=== PATIENT | female | born 1995 | race Hispanic/Latino ===

== ENCOUNTER 2024-03-13 10:09 | Emergency (ER) | payer SELFPAY ==
[~2024-03-13] VITALS: Ht 137.2 cm; Wt 44.5 kg
[~2024-03-13 10:09] MED LIST: ACET-2079 PO; PREN-196 PO
--- NOTE | 2024-03-13 10:15 | NUR ---
TRANSFER REQUEST FOR OB SERVICE. PETER BARBER
--- NOTE | 2024-03-13 10:22 | NUR ---
TRANSFER REACHED OUT TO [facility] TOOL TROUBLE SHOOTER FOR DROP IN FOR OB STATES CALL ER FOR ON AND TRANSFER CENTER. ER CALLED AND DR ECHOLS ROOFING SALES REPRESENTATIVE. ER DR MADE AWARE TO CALL DR ECHOLS TO DO DOCTOR TO DOCTOR REPORT. PETER BARBER
--- NOTE | 2024-03-13 10:26 | NUR ---
TRANSFER CALL PLACE TO [facility] TRANSFER CENTER [phone] INFORMATION GIVEN WILL CALL BACK. PETER BARBER
--- NOTE | 2024-03-13 10:35 | NUR ---
TRANSFER CALL BACK FROM [facility] INTAKE NURSE WITH ACCEPTANCE UNDER DR KINZA GRIMALDO AT 1033 PT WILL GO TO LDR TRIAGE ON 2ND FLOOR AND PRIMARY NURSE TO CALL REPORT TO [phone] AND EMS . PETER BARBER
[2024-03-13 10:49] VITALS: BP 115/65; PULSE 84; RESP 18; TEMP 98.1; O2SAT 99
--- NOTE | 2024-03-13 10:58 | NUR ---
REPORT CALLED TO SHAYLA GARRISON RN AT [facility] L&D
[2024-03-13 10:59] LABS: BASOPHILS # (AUTO) 0.03 K/uL (0.00-0.20); BASOPHILS % (AUTO) 0.3 % (0.0-5.0); EOSINOPHILS # (AUTO) 0.06 K/uL (0.00-0.70); EOSINOPHILS % (AUTO) 0.6 % (0.0-8.0); HEMATOCRIT 33.1 % (36-48); IMMATURE GRANULOCYTE ABSOLUTE 0.04 K/uL (0-1); LYMPHOCYTES # (AUTO) 2.5 K/uL (1.0-4.8); LYMPHOCYTES % (AUTO) 26.8 % (21.0-51.0); MEAN CORPUSCULAR HEMOGLOBIN 27.3 pg (27.0-33.0); MEAN CORPUSCULAR HGB CONC 32.3 g/dL (32.0-36.0); MEAN CORPUSCULAR VOLUME 84.4 fL (79-99); MONOCYTES # (AUTO) 0.6 K/uL (0.1-1.0); MONOCYTES % (AUTO) 5.9 % (3.0-13.0); NEUTROPHILS # (AUTO) 6.2 K/uL (1.8-7.7); PLATELET COUNT (AUTO) 205 K/uL (130-400); RED BLOOD CELL COUNT(AUTO) 3.92 MIL/uL (4.00-5.50); RED CELL DISTRIBUTION WIDTH 17.2 % (11.0-15.5); WHITE BLOOD COUNT (AUTO) 9.5 K/uL (4.8-10.8)
--- NOTE | 2024-03-13 11:01 | NUR ---
EMS AT BEDSIDE, REPORT TO [facility]
[2024-03-13] MEDS: 0.9%NACL 1000ML 1,000 ML IV ONE (11:04)
[2024-03-13 11:05] LABS: CREATININE 0.5 mg/dL (0.5-1.0); POTASSIUM 3.3 mmol/L (3.5-5.1)
--- NOTE | 2024-03-13 11:08 | ERN ---
General Chief Complaint: OB>20 weeks gest. Stated Complaint: CONTRACTIONS Time Seen by MD: 10:18 History of Present Illness Initial Comments 28-year-old female two para one at 39 weeks of gestational age came in for lower abdominal pressure with contractions that started at 5:00 a.m. this morning. Patient states that her contractions been irregular. Patient denies any fluid leak. Patient otherwise has no concerns. Allergies: Coded Allergies: No Known Allergies (Unverified Allergy, Unknown, 08/26/22) Home Meds Reported Medications Acetaminophen with Codeine (Acetaminophen-Cod #3 Tablet) 1 Each Tablet, 1 EACH PO Q4HPRN PRN for PAIN, TAB 08/28/22 Vit No.124/Iron/FA ( Vitamin Tablet) 1 Each Tablet, 1 EACH PO DAILYDINNER, TAB 08/27/22 Past Medical History Past Medical History: No Pertinent History Past Surgical History: Female( History) LMP: June 29, 2023 : 2 Para: 1 Aborts: 0 ROS Dictation CONSTITUTIONAL: Negative except for HPI HEAD/FACE: Negative except for HPI EENT: Negative except for HPI RESPIRATORY: Negative except for HPI GASTROINTESTINAL/ABDOMINAL: Negative except for HPI GENITOURINARY: Negative except for HPI MUSCULOSKELETAL: Negative except for HPI INTEGUMENTARY: Negative except for HPI NEUROLOGICAL/PSYCH: Negative except for HPI HEMATOLOGIC/LYMPHATIC: Negative except for HPI All Systems Negative, Except as noted above. 13 point review of systems assessed and all negative except for above. Physical Exam Physical Exam Dictation Vital Signs reviewed General Appearance: Alert, oriented x 3, no acute distress, well developed, nourished. Head and Face: non-traumatic. Eyes: PERRL, pink conjunctivas, eyelid no trauma, anterior chamber with arcus senilis. Ears: Pinnas intact and no signs of trauma or erythema ear canals clear and no discharge TM no erythema Nose: No discharge, no bleeding. Oropharynx: Mouth normal, tongue pink, pharynx clear,no erythema, tonsils no exudates, no abscesses noted, mucous membrane moist Neck: Supple, non-tender, no thyromegaly, no masses, no JVD, no bruits Breast:Deferred Chest:No tenderness, no crepitus, no paradoxical movement, no retractions Lungs:Clear, well-ventilated, symmetric, no rales, no wheezing, no rhonchi, no stridor, good breath sounds bilaterally Heart: Regular rate, regular rhythm, no murmur, no gallops Vascular: no peripheral edema, Abdomen: Soft, positive bowel sounds, nondistended, no guarding, nontender, no rebound, no masses no hepatomegaly, no splenomegaly, no Guerrero's s ign, no hernias. Rectal: Deferred Genital: Deferred Neurological: Normal speech, motor function intact, sensory function intact Musculoskeletal: Neck nontender, full range of motion, back nontender, full range of motion, Extremities: nontender, full range of motion Skin: Color pink, dry, no turgor, no rash, no lacerations, no abrasions, no contusions. Lymphatic: Deferred Results Laboratory and Microbiology Lab and Micro Result Laboratory Tests Test 03/13/24 10:28 White Blood Count 9.5 K/uL (4.8-10.8) Red Blood Count 3.92 MIL/uL (4.00-5.50) L Hemoglobin 10.7 g/dL (12.0-16.0) L Hematocrit 33.1 % (36-48) L Mean Corpuscular Volume 84.4 fL (79-99) Mean Corpuscular Hemoglobin 27.3 pg (27.0-33.0) Mean Corpuscular Hemoglobin Concent 32.3 g/dL (32.0-36.0) Red Cell Distribution Width 17.2 % (11.0-15.5) H Platelet Count 205 K/uL (130-400) Mean Platelet Volume 10.6 fL (7.5-10.5) H Immature Granulocyte % (Auto) 0.4 % (0-1) Neutrophils (%) (Auto) 66.0 % (40.0-77.0) Lymphocytes (%) (Auto) 26.8 % (21.0-51.0) Monocytes (%) (Auto) 5.9 % (3.0-13.0) Eosinophils (%) (Auto) 0.6 % (0.0-8.0) Basophils (%) (Auto) 0.3 % (0.0-5.0) Neutrophils # (Auto) 6.2 K/uL (1.8-7.7) Lymphocytes # (Auto) 2.5 K/uL (1.0-4.8) Monocytes # (Auto) 0.6 K/uL (0.1-1.0) Eosinophils # (Auto) 0.06 K/uL (0.00-0.70) Basophils # (Auto) 0.03 K/uL (0.00-0.20) Absolute Immature Granulocyte (auto 0.04 K/uL (0-1) Nucleated Red Blood Cells 0.0 % (0.0-0.19) MDM MDM: Differential diagnosis: Rationale: Tests considered and ordered secondary to shared decision making include: Previous outside records reviewed: Old ER visits. Risk of complication and/or morbidity or mortality of patient management: None Medications-Per medication reconciliation Need for hospitalization: Patient does meet criteria for hospitalization. Need for emergency major/minor surgery: No There are no social concerns with this patient. Prescription drug management Prescriptions will include symptomatic care Patient's prior external medical records from other ER visits were reviewed by me as indicated. Prior testing and results from previous visits were reviewed. Prior tests were taken into account with medical decision making and resource utilization, independent historian/historians were used to obtain complete medical history. I independently interpreted the test that were performed, results were reviewed by me and considered findings on radiology if ordered. Medical management and examination interpretation discussions were had by me with other qualified healthcare professionals as indicated for the patient's care. Patient was placed on tocometer and there is moderate variability and since patient has been here she has not had any contraction. On pelvic exam patient was 2 cm dilated with high cervix. [facility] for further management. Report has been given to on-call consumer insight analyst who accepted the patient. Patient understands and agrees with the plan of care. ED Course Orders Procedure Category Date Status Time Cbc With Differential LAB 03/13/24 Complete 10:25 Basic Metabolic Panel LAB 03/13/24 In Process 10:25 Urinalysis Profile LAB 03/13/24 Logged 10:25 Type And Screen BBK 03/13/24 In Process 10:25 0.9%Nacl 1000ml (Ns PHA 03/13/24 Complete 1000ml) 10:30 Current Medications Medications (Trade) Dose Ordered Sig/Radha Route PRN Reason Start Time Stop Time Status Last Admin Dose Admin Sodium Chloride 1,000 ml @ 0 mls/hr ONCE ONCE IV 03/13/24 10:30 03/13/24 10:31 DC Vital Signs Date Time Temp Pulse Resp B/P (MAP) Pulse Ox O2 Delivery O2 Flow Rate FiO2 03/13/24 10:49 98.1 84 18 115/65 99 Room Air* 0 21 03/13/24 10:10 98.6 90 20 112/74 99 Room Air 0 DX & DISP Disposition: Transfer Departure Impression: Primary Impression: Third trimester Condition: Stable Referrals: SELF,REFERRAL (PCP) ISAIAH LAMAR MD Mar 13, 2024 11:08
--- NOTE | 2024-03-13 11:09 | NUR ---
PT LEFT ER UNDER CARE OF [facility], AWAKE, ALERT, NO ACUTE DISTRESS NOTED. DENIES CRAMPS AT THIS TIME.
== END 2024-03-13 11:08 | disposition short-term general hospital (02) ==
LOC: EDH 10:09
DX: O62.9 Abnormality of forces of labor, unspecified (principal); Z3A.39 39 weeks gestation of pregnancy
CPT/HCPCS: 99285; 96360; 80048; 85025; 86850; 86900; 86901; 36415; J7030